=== PATIENT | male | born 1960 | race Caucasian/White ===

== ENCOUNTER 2021-04-17 12:50 | Emergency (ER) | payer BC ==
[2021-04-17] MEDS ORDERED: Lidocaine 1% w/Epinephrine 1:100K 20 ML VIAL ONE (13:45)
[2021-04-17] MEDS ORDERED: Boostrix 0.5 ML (Tdap) VIAL ONE (14:12)
== END 2021-04-17 14:15 | disposition home or self-care (01) ==
LOC: BURERS 12:50
DX: S81.812A Laceration without foreign body, left lower leg, initial encounter (principal); Z23 Encounter for immunization; I10 Essential (primary) hypertension
CPT/HCPCS: 12002; 90471; 90715